=== PATIENT | male | born 1970 | race African-American/Black ===

== ENCOUNTER 2019-01-07 19:25 | Inpatient (IN) | payer SELFPAY ==
[~2019-01-07] VITALS: Ht 167.6 cm; Wt 72.6 kg
[2019-01-07] MEDS ORDERED: diphenhydrAMINE 50 MG/ML VIAL IVP ONE (20:00)
[2019-01-07] MEDS ORDERED: methylPREDNISolone SOD SUCC PF 125 MG/2 ML VIAL. IV ONE (20:00)
[2019-01-07] MEDS ORDERED: IV NORMAL SALINE 1000ML BAG 1,000 ML IV ONE (20:00)
[2019-01-07] MEDS ORDERED: FAMOTIDINE 20 MG/2 ML VIAL IVP ONE (20:00)
[2019-01-07] MEDS ORDERED: MORPHINE SULFATE 4 MG/ML VIAL. IV ONE (20:00)
[2019-01-07] MEDS ORDERED: ONDANSETRON PF 4 MG/2 ML VIAL. IV ONE (20:00)
[2019-01-07 20:13] LABS: BASO % 1 % (0-3); EOS # 0.1 x10^3/uL (0.0-0.7); EOS % 1 % (0-3); HEMOGLOBIN 13.4 g/dL (13.0-17.5); LYMPH # 1.7 x10^3/uL (1.0-4.8); LYMPH % 40 % (24-48); MEAN CORPUSCULAR HEMOGLOBIN 33 pg (25-35); MEAN CORPUSCULAR HGB CONC 35 g/dL (31-37); MEAN CORPUSCULAR VOLUME 93 fL (79-100); MONO # 0.5 x10^3/uL (0.0-1.1); MONO % 11 % (0-9); NEUT % 47 % (31-73); PLATELET COUNT 196 x10^3/uL (140-400); RED BLOOD COUNT 4.08 x10^6/uL (4.30-5.70); RED CELL DISTRIBUTION WIDTH 13.7 % (11.5-14.5); WHITE BLOOD COUNT 4.3 x10^3/uL (4.0-11.0)
[2019-01-07 20:19] LABS: CALCIUM 9.1 mg/dL (8.5-10.1); CREATININE 1.4 mg/dL (0.7-1.3); GFR 53.6; POTASSIUM 3.6 mmol/L (3.5-5.1)
[2019-01-07 20:20] LABS: PROTHROMBIN TIME PATIENT 15.9 SEC (11.7-14.0)
[2019-01-07 20:24] LABS: ALBUMIN 3.7 g/dL (3.4-5.0); ALBUMIN/GLOBULIN RATIO 0.9 (1.0-1.7); TOTAL BILIRUBIN 0.4 mg/dL (0.2-1.0); TOTAL PROTEIN 7.6 g/dL (6.4-8.2)
[2019-01-07] MEDS ORDERED: IOHEXOL 300 MG/ML 100ML VIAL. IV ONE (20:30)
--- NOTE | 2019-01-07 21:07 | RAD ---
CT SCAN OF THE ABDOMEN AND PELVIS WITH IV CONTRAST. History: Abdominal pain and diarrhea Comparison: December 24, 2018. Procedure: Contiguous axial images of the abdomen and pelvis were performed after the administration of 60 cc of Omni 300 IV contrast and without oral contrast. CT Abdomen with contrast: Findings: Liver: Unremarkable Spleen: Unremarkable Pancreas: Pancreatic duct is mildly dilated to 5 mm. This is not appreciated on the prior study. Adrenal Glands: Unremarkable Kidneys: Unremarkable There is no mass or lymphadenopathy. There is no free air. There is no free fluid. There is mild dependent changes posteriorly in the lungs. There is mild respiratory motion. The proximal small bowel is mildly dilated. Distal small bowel and colon have a more normal caliber. A transition zone is not seen. CT Pelvis with Contrast: Findings: The urinary bladder appears normal. There is no free fluid. There is no lymphadenopathy. The appendix is normal. Impression: 1. The pancreatic duct is mildly dilated. This is not seen on the prior study. Recommend correlation with amylase and lipase. A stone is not seen. 2. Mildly dilated proximal small bowel could be secondary to partial small bowel obstruction. PQRS Compliance Statement: One or more of the following individualized dose reduction techniques were utilized for this examination: 1. Automated exposure control 2. Adjustment of the mA and/or kV according to patient size 3. Use of iterative reconstruction technique Electronically signed by: Drew Howard III, MD (01/07/2019 9:05 PM) [facility]
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
--- NOTE | 2019-01-07 22:40 | NUR ---
Received patient from ER per cart. Admitting diagnosis is partial small bowel obstruction. Patient stated he started having abdominal pain on 01/06 with nausea and constipation. Patient stated he had chicken,fries and a soda at 1630 and that his pain increased after eating. Patient brought to ER by his Rosy. CT Scan confirmed diagnosis. Patient sleeping at this time. Will continue to monitor patient. Patient is NPO. at bedside.
[2019-01-07 22:46] LABS: BILIRUBIN,URINE NEGATIVE (NEG); CLARITY,URINE CLEAR; COLOR,URINE YELLOW; NITRITE,URINE NEGATIVE (NEG); PROTEIN,URINE NEGATIVE (NEG-TRACE); UROBILINOGEN,URINE 0.2 mg/dL (0.2 mg/dL)
[2019-01-07 22:59] LABS: BACTERIA,URINE 0 /HPF (0-FEW); RBC,URINE 0 /HPF (0-2); WBC,URINE OCC /HPF (0-4)
[2019-01-07 23:00] VITALS: BP 153/93
[2019-01-07 23:00] LABS: SQUAMOUS EPITHELIAL CELL,UR OCC /LPF
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
[2019-01-07] MEDS ORDERED: BISACODYL 10 MG SUPP.RECT. PR PRN (23:45)
[2019-01-07] MEDS ORDERED: ENOXAPARIN 40 MG/0.4 ML SYRINGE. SQ SCH (23:45)
[2019-01-07] MEDS: IV NORMAL SALINE 1000ML BAG 1,000 ML IV SCH (23:54)
[2019-01-08] MEDS ORDERED: SPIR100T4 PO (02:24)
[2019-01-08] MEDS ORDERED: METH-38 PO (02:31)
[2019-01-08] MEDS ORDERED: TAMS0.4C97 PO (02:31)
[2019-01-08] MEDS ORDERED: ASPI-630 PO (02:31)
[2019-01-08] MEDS ORDERED: OXYC5CAP PO (02:31)
[2019-01-08] MEDS ORDERED: RIVA10TA PO (02:31)
[2019-01-08] MEDS ORDERED: LOSA-73 PO (02:31)
[2019-01-08] MEDS ORDERED: AMLO10TA8 PO (02:31)
[2019-01-08 03:00] VITALS: BP 106/79
--- NOTE | 2019-01-08 06:50 | EKG ---
[facility] [address] [place] [address] Test Date: 2019-01-07 Test Time: 20:06:46 Pat Name: HILARY HARRIS Department: Room: 412 Gender: M [employer]: : 1970 Requested By: KAYLIE DANIELS Order Number: [id number] Reading MD: All Guy MD Measurements Intervals [place] Rate: 84 P: 40 [place]: 160 QRS: 59 QRSD: 84 T: 26 QT: 378 QTc: 450 Interpretive Statements SINUS RHYTHM NON SPECIFIC ST-T ABNORMALITY (ELEVATION) Electronically Signed On 01-16-2019 9:55:53 CDT by All Guy MD
[2019-01-08 07:00] VITALS: BP 143/85
[2019-01-08] MEDS: IV NORMAL SALINE 1000ML BAG 1,000 ML IV SCH ×2 (09:09→21:03)
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
[2019-01-08 11:00] VITALS: BP 145/93
--- NOTE | 2019-01-08 11:30 | NUR ---
SS following for discharge planning. SS reviewed pt chart. Pt is self pay pt. [facility]CF[facility] following for self pay status. Pt is from home with spouse and is currently on room air. SS will continue to follow for discharge planning.
[2019-01-08 15:00] VITALS: BP 155/92
[2019-01-08 19:00] VITALS: BP 173/106
[2019-01-08] MEDS: LABETALOL 20 MG/4 ML DISP.SYRIN. IVP PRN (19:29)
[2019-01-08] MEDS: MORPHINE SULFATE 4 MG/ML VIAL. IV PRN ×2 (19:34→23:48)
[2019-01-08] MEDS: FAMOTIDINE 20 MG/2 ML VIAL IVP SCH (21:07)
[2019-01-08 22:52] VITALS: BP 160/99
[2019-01-09] VITALS (7 sets, daily range): BP systolic 136–186; BP diastolic 79–130
--- NOTE | 2019-01-09 01:32 | CONS ---
DATE OF CONSULTATION: 01/08/2019 CHIEF COMPLAINT: Superior mesenteric artery dissection. 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 This was treated with anticoagulation with Xarelto. He states not taking the Xarelto over the past 3 weeks because he ran out of the medication. He does state that he did take it yesterday. He came into the Emergency Room because of irregular bowels with constipation and diarrhea and some abdominal pain. He reports some nausea, but no vomiting. He has had a decreased appetite with his constipation. He has been able to walk without any pain in his chest or shortness of breath. He reports no pain in his legs. REVIEW OF SYSTEMS: A 10-point review of systems was performed, which is otherwise negative besides what is mentioned in the history of present illness. PAST MEDICAL HISTORY: Includes: 1. Hypertension. 2. Recent superior mesenteric artery dissection. PAST SURGICAL HISTORY: Includes a knee surgery. FAMILY HISTORY: Includes hypertension. SOCIAL HISTORY: Smokes 1 pack of cigarettes per day, no alcohol use. PHYSICAL EXAMINATION: GENERAL: The patient is awake and alert, currently in no apparent distress. VITAL SIGNS: His blood pressure is 106/79, pulse anywhere from 66-107, he is afebrile, and he is 93% on room air. NECK: Supple with no carotid bruits. HEART: Regular rate and rhythm without murmurs. LUNGS: Clear to auscultation bilaterally. ABDOMEN: Soft, nondistended. There is no tenderness throughout his abdominal exam, no guarding, no rebound, and no peritoneal signs. EXTREMITIES: His bilateral lower extremities are warm with palpable pedal pulses. No edema and no tissue breakdown. Bilateral upper extremities are warm with palpable pulses. NEUROLOGIC: He is awake, alert, oriented x 3, moving all 4 extremities with normal strength, normal speech, no gross neurologic deficits. DIAGNOSTIC DATA: Review of CT scan with IV contrast, not an angiogram format shows a patent superior mesenteric artery. It does not clearly show a dissection. There is mild dilatation of his proximal small bowel suggestive of a partial small-bowel obstruction. His aorta is patent and there is no aneurysmal disease. IMPRESSION: 1. History of a superior mesenteric artery dissection in 09/2018. 2. Partial small-bowel obstruction. PLAN: The patient reports being at [facility] in 09/2018, found to have a superior mesenteric artery dissection. This has been treated with anticoagulation with Eliquis. He did not take it for approximately 3 weeks because he ran out of the medication prior to presentation to the hospital. CT scan of the abdomen and pelvis with IV contrast shows patency of the superior mesenteric artery; however, this is not an angiogram format. I recommend a CT angiogram of the abdomen and pelvis to further evaluate his arteries. He will need to continue his anticoagulation as this is the main treatment for the dissection. GI and Medicine are managing his partial small-bowel obstruction. MONTSERRAT RANDLE MD DR: OBINNA/renata JOB#: [id number] / [id number]
[2019-01-09] MEDS: MORPHINE SULFATE 4 MG/ML VIAL. IV PRN ×4 (03:55→23:33)
[2019-01-09] MEDS: LABETALOL 20 MG/4 ML DISP.SYRIN. IVP PRN ×3 (03:55→21:08)
--- NOTE | 2019-01-09 09:57 | PDOC ---
PROGRESS NOTES Subjective Subjective pt states he's "a little better", some dull pain in low abdomen intermittently Objective Objective Vital Signs Date Time Temp Pulse Resp B/P (MAP) Pulse Ox O2 Delivery O2 Flow Rate FiO2 01/09/19 07:00 98.2 80 18 147/109 (122) 99 Room Air 98.2 Intake and Output 01/09/19 07:00 Intake Total 700 ml Output Total 1 ml Balance 699 ml Intake Oral 0 ml Other 700 ml Output Stool Total 1 ml # Voids 3 Physical Exam Abdomen: Soft, No tenderness Heart: Regular rate Extremities: No clubbing, No cyanosis General: Alert, Oriented X3 HEENT: Atraumatic Lungs: Clear to auscultation Neuro: Normal speech Psych/Mental Status: Mental status NL Assessment Assessment Problems Medical Problems: (1) Partial small bowel obstruction Status: Acute Plan Plan of Care Reviewed CT, doubt intestinal obstruction; Vascular consult noted, defer radiographic evaluation to them (?CTA, need for premedication?); would be ok to start clears from my standpoint when Vascular testing completed Comment Review of Relevant I have reviewed the following items mehran (where applicable) has been applied. Labs Laboratory Tests Test 01/07/19 19:55 01/07/19 22:35 White Blood Count 4.3 x10^3/uL (4.0-11.0) Red Blood Count 4.08 x10^6/uL (4.30-5.70) Hemoglobin 13.4 g/dL (13.0-17.5) Hematocrit 38.0 % (39.0-53.0) Mean Corpuscular Volume 93 fL (79-100) Mean Corpuscular Hemoglobin 33 pg (25-35) Mean Corpuscular Hemoglobin Concent 35 g/dL (31-37) Red Cell Distribution Width 13.7 % (11.5-14.5) Platelet Count 196 x10^3/uL (140-400) Neutrophils (%) (Auto) 47 % (31-73) Lymphocytes (%) (Auto) 40 % (24-48) Monocytes (%) (Auto) 11 % (0-9) Eosinophils (%) (Auto) 1 % (0-3) Basophils (%) (Auto) 1 % (0-3) Neutrophils # (Auto) 2.0 x10^3/uL (1.8-7.7) Lymphocytes # (Auto) 1.7 x10^3/uL (1.0-4.8) Monocytes # (Auto) 0.5 x10^3/uL (0.0-1.1) Eosinophils # (Auto) 0.1 x10^3/uL (0.0-0.7) Basophils # (Auto) 0.0 x10^3/uL (0.0-0.2) Prothrombin Time 15.9 SEC (11.7-14.0) Prothromb Time International Ratio 1.3 (0.8-1.1) Activated Partial Thromboplast Time 39 SEC (24-38) Sodium Level 139 mmol/L (136-145) Potassium Level 3.6 mmol/L (3.5-5.1) Chloride Level 103 mmol/L (98-107) Carbon Dioxide Level 26 mmol/L (21-32) Anion Gap 10 (6-14) Blood Urea Nitrogen 17 mg/dL (8-26) Creatinine 1.4 mg/dL (0.7-1.3) Estimated GFR (Cockcroft-Gault) 53.6 BUN/Creatinine Ratio 12 (6-20) Glucose Level 157 mg/dL (70-99) Calcium Level 9.1 mg/dL (8.5-10.1) Total Bilirubin 0.4 mg/dL (0.2-1.0) Aspartate Amino Transf (AST/SGOT) 16 U/L (15-37) Alanine Aminotransferase (ALT/SGPT) 20 U/L (16-63) Alkaline Phosphatase 69 U/L (46-116) Troponin I Quantitative < 0.017 ng/mL (0.000-0.055) Total Protein 7.6 g/dL (6.4-8.2) Albumin 3.7 g/dL (3.4-5.0) Albumin/Globulin Ratio 0.9 (1.0-1.7) Lipase 160 U/L (73-393) Urine Color Yellow Urine Clarity Clear Urine pH 6.0 Urine Specific [place] 1.020 Urine Protein Negative mg/dL (NEG-TRACE) Urine Glucose (UA) Negative mg/dL (NEG) Urine Ketones (Stick) Negative mg/dL (NEG) Urine Blood Negative (NEG) Urine Nitrite Negative (NEG) Urine Bilirubin Negative (NEG) Urine Urobilinogen Dipstick 0.2 mg/dL (0.2 mg/dL) Urine Leukocyte Esterase Negative (NEG) Urine RBC 0 /HPF (0-2) Urine WBC Occ /HPF (0-4) Urine Squamous Epithelial Cells Occ /LPF Urine Bacteria 0 /HPF (0-FEW) Urine Mucus Slight /LPF Medications Current Medications Sodium Chloride 1,000 ml @ 1,000 mls/hr 1X ONCE IV Last administered on 01/07/19 19:57; Start 01/07/19 at 20:00; Stop 01/07/19 at 20:59; Status DC Morphine Sulfate (Morphine Sulfate) 4 mg 1X ONCE IV Last administered on 01/07/19at 19:58; Start 01/07/19 at 20:00; Stop 01/07/19 at 20:01; Status DC Ondansetron HCl (Zofran) 4 mg 1X ONCE IV Last administered on 01/07/19 19:57; Start 01/07/19 at 20:00; Stop 01/07/19 at 20:01; Status DC Methylprednisolone Sodium Succinate (SOLU-Medrol 125MG VIAL) 125 mg 1X ONCE IV Last administered on 01/07/19at 20:17; Start 01/07/19 at 20:00; Stop 01/07/19 at 20:03; Status DC Diphenhydramine HCl (Benadryl) 50 mg 1X ONCE IVP Last administered on 01/07/19at 20:18; Start 01/07/19 at 20:00; Stop 01/07/19 at 20:03; Status DC Famotidine (Pepcid Vial) 40 mg 1X ONCE IVP Last administered on 01/07/19at 20:00; Start 01/07/19 at 20:00; Stop 01/07/19 at 20:03; Status DC Iohexol (Omnipaque 300 Mg/ml) 60 ml 1X ONCE IV Last administered on 01/07/19at 20:54; Start 01/07/19 at 20:30; Stop 01/07/19 at 20:31; Status DC Sodium Chloride 1,000 ml @ 100 mls/hr Q10H IV Last administered on 01/08/19at 21:03; Start 01/07/19 at 22:30; Stop 01/08/19 at 22:29; Status DC Enoxaparin Sodium (Lovenox 40mg Syringe) 40 mg QHS SQ Last administered on 01/08/19at 01:51; Start 01/07/19 at 23:45; Stop 01/08/19 at 15:43; Status DC Morphine Sulfate (Morphine Sulfate) 4 mg PRN Q4HRS PRN IV SEVERE PAIN 7-10 Last administered on 01/09/19at 08:00; Start 01/07/19 at 23:45 Bisacodyl (Dulcolax Supp) 10 mg PRN DAILY PRN OR CONSTIPATION 1ST CHOICE; Start 01/07/19 at 23:45 Labetalol HCl (Normodyne Iv Push) 10 mg PRN Q2HR PRN IVP HYPERTENSION Last administered on 01/09/19at 03:55; Start 01/08/19 at 00:00 Famotidine (Pepcid Vial) 20 mg QHS IVP Last administered on 01/08/19at 21:07; Start 01/08/19 at 21:00 Enoxaparin Sodium (Lovenox Per Pharmacy Treatment Dosing) 1 each PRN DAILY PRN MC SEE COMMENTS; Start 01/08/19 at 15:30 Enoxaparin Sodium (Lovenox 80mg Syringe) 70 mg Q12HR SQ ; Start 01/08/19 at 16:00; Stop 01/08/19 at 16:05; Status DC Enoxaparin Sodium (Lovenox 80mg Syringe) 70 mg Q12HR SQ Last administered on 01/09/19at 07:58; Start 01/08/19 at 21:00 Active Scripts Active Reported Robaxin-750 (Methocarbamol) 750 Mg Tablet 1 Tab PO PRN Q6HRS PRN Flomax (Tamsulosin Hcl) 0.4 Mg Cap.er.24h 1 Cap PO HS Amlodipine Besylate 10 Mg Tablet 10 Mg PO DAILY Oxycodone Hcl 5 Mg Capsule 5 Mg PO PRN Q6HRS PRN Xarelto (Rivaroxaban) 10 Mg Tablet 1 Tab PO DAILY Losartan Potassium 50 Mg Tablet 50 Mg PO DAILY Aspirin 81 Mg Tab.chew 1 Tab PO DAILY Spironolactone 100 Mg Tablet 1 Tab PO DAILY Vitals/I & O Vital Sign - Last 24 Hours 01/08/19 01/08/19 01/08/19 01/08/19 11:00 15:00 19:00 19:25 Temp 98.3 98.6 99.3 98.3 98.6 99.3 Pulse 78 77 73 Resp 18 20 18 B/P (MAP) 145/93 (110) 155/92 (113) 173/106 (128) Pulse Ox 94 96 99 O2 Delivery Room Air Room Air Room Air Room Air 01/08/19 01/08/19 01/08/19 01/08/19 19:29 19:34 20:04 22:52 Temp 98.5 98.5 Pulse 73 82 Resp 20 20 18 B/P (MAP) 173/106 160/99 (119) Pulse Ox 99 O2 Delivery Room Air Room Air Room Air 01/08/19 01/09/19 01/09/19 01/09/19 23:48 00:18 03:00 03:55 Temp 98.9 98.9 Pulse 87 Resp 18 18 18 18 B/P (MAP) 166/79 (108) Pulse Ox 96 O2 Delivery Room Air Room Air Room Air 01/09/19 01/09/19 01/09/19 03:55 04:25 07:00 Temp 98.2 98.2 Pulse 81 80 Resp 18 18 B/P (MAP) 166/97 147/109 (122) Pulse Ox 99 O2 Delivery Room Air Room Air Intake and Output 01/08/19 01/08/19 01/09/19 15:00 23:00 07:00 Intake Total 700 ml Output Total 1 ml Balance -1 ml 700 ml EMA LOUIS MD Jan 09, 2019 09:57
[2019-01-09] MEDS ORDERED: methylPREDNISolone SOD SUCC PF 125 MG/2 ML VIAL. IV ONE (10:00)
[2019-01-09] MEDS ORDERED: FAMOTIDINE 20 MG/2 ML VIAL IVP ONE (10:00)
[2019-01-09] MEDS ORDERED: diphenhydrAMINE 50 MG/ML VIAL IVP ONE (10:00)
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
[2019-01-09] MEDS ORDERED: IOHEXOL 350 MG/ML 100 ML VIAL. IV ONE (10:30)
--- NOTE | 2019-01-09 11:32 | PDOC ---
Subjective: Subjective: Stooled yesterday. Lower abd aching comes and goes. Objective: Objective: Reviewed w/ nurse - CTA today. Research records: Had subdural hematoma. CTA A/P 09/23/18: focal dissections of the SMA just distal to its origin and at the origin of a jejunal branch. Noted unremarkable pancreas. Vital Signs: Vital Signs Date Time Temp Pulse Resp B/P (MAP) Pulse Ox O2 Delivery O2 Flow Rate FiO2 01/09/19 11:00 98.0 82 18 157/83 (107) 96 Room Air 98.0 PE: GEN: NAD LUNGS: CTAB HEART: RRR ABD: quiet, suprapubic discomfort NEURO/PSYCH: A & O 3 A/P: Lower abd pain H/o SMA dissection Abnormal CT - mildly dilated pancreatic duct (5mm), mildly dilated proximal small bowel -- Await CTA. ?try clears after CHRISSY-ERIK SOLANO Jan 09, 2019 11:32
[2019-01-09] MEDS: AMINO AC 3%/ELECTROLYTE/GLYCER 1,000 ML IV SCH (13:43)
[2019-01-09] MEDS: FAMOTIDINE 20 MG/2 ML VIAL IVP SCH (21:05)
[2019-01-10] MEDS ORDERED: oxyCODONE IR 5 MG TABLET PO PRN (01:30)
[2019-01-10] MEDS ORDERED: METHOCARBAMOL 750 MG TABLET PO PRN (01:30)
[2019-01-10 03:00] VITALS: BP 155/87
[2019-01-10] MEDS: AMINO AC 3%/ELECTROLYTE/GLYCER 1,000 ML IV SCH ×2 (04:23→11:15)
[2019-01-10] MEDS: MORPHINE SULFATE 4 MG/ML VIAL. IV PRN (04:31)
[2019-01-10 07:00] VITALS: BP 172/115
[2019-01-10 07:12] LABS: BASO % 0 % (0-3); EOS % 0 % (0-3); HEMATOCRIT 40.4 % (39.0-53.0); HEMOGLOBIN 14.3 g/dL (13.0-17.5); LYMPH # 1.7 x10^3/uL (1.0-4.8); LYMPH % 28 % (24-48); MEAN CORPUSCULAR HEMOGLOBIN 33 pg (25-35); MEAN CORPUSCULAR HGB CONC 36 g/dL (31-37); MEAN CORPUSCULAR VOLUME 93 fL (79-100); MONO # 0.5 x10^3/uL (0.0-1.1); MONO % 8 % (0-9); NEUT # 3.9 x10^3/uL (1.8-7.7); NEUT % 64 % (31-73); PLATELET COUNT 182 x10^3/uL (140-400); RED BLOOD COUNT 4.33 x10^6/uL (4.30-5.70); RED CELL DISTRIBUTION WIDTH 13.2 % (11.5-14.5); WHITE BLOOD COUNT 6.1 x10^3/uL (4.0-11.0)
[2019-01-10] MEDS ORDERED: ASPIRIN CHEWABLE 81 MG TABLET. PO SCH (08:00)
[2019-01-10 08:22] LABS: CREATININE 1.1 mg/dL (0.7-1.3); GFR 85.7; POTASSIUM 4.1 mmol/L (3.5-5.1)
[2019-01-10] MEDS ORDERED: amLODIPine BESYLATE 10 MG TABLET PO SCH (09:00)
[2019-01-10] MEDS ORDERED: LOSARTAN POTASSIUM 50 MG TABLET. PO SCH (09:00)
[2019-01-10] MEDS ORDERED: SPIRONOLACTONE 25 MG TABLET PO SCH (09:00)
[2019-01-10] MEDS ORDERED: RIVAROXABAN 10 MG TABLET. PO SCH (09:00)
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
--- NOTE | 2019-01-10 10:14 | RAD ---
CTA of the abdomen and pelvis compared to standard IV contrast abdomen and pelvis dated January 07, 2019 for history of SMA dissection. TECHNIQUE: Contiguous helical 2 mm axial images are obtained from the apex of diaphragm to the pelvic floor prior to administration of contrast as well as following ministration of contrast in the arterial phase. Sagittal and coronal MIPS images and 3-D volume rendered images of the vasculature also evaluated. Nonvascular findings: No gross abnormality is of the liver, spleen, gallbladder, bilateral adrenal glands, or right kidney are identified. Simple cyst at the upper pole the left kidney is noted. There is dilatation of the pancreatic duct to 5 mm, with no focal pancreatic parenchymal abnormality identified. No free or loculated fluid collections are seen within the abdomen or pelvis. Evaluation of the colon and small bowel is limited by lack of oral contrast, however no gross bowel dilatation or bowel wall thickening is identified. Several diverticula are present throughout the colon with no evidence of acute diverticulitis. The urinary bladder is fluid distended and grossly unremarkable. There are several small lymph nodes distributed throughout the mesentery which may be normal, or reactive. No suspicious adenopathy is identified. No suspicious osteoblastic or osteolytic bone lesions are seen. Degenerative spondylosis of the lower thoracic and lumbar spine is noted. Vascular findings: There is no significant atherosclerosis. The aorta is nonaneurysmal but somewhat tortuous. Iliofemoral arteries are widely patent with no aneurysms or stenoses. There are single bilateral renal arteries which are widely patent. The celiac artery and inferior mesenteric arteries are also widely patent and normal in appearance. The superior mesenteric artery is widely patent as well, but is notable for a proximal dissection originating roughly 1 cm from its origin and extending for approximately 5 cm. There is divided perfusion with the first proximal jejunal branch perfused through the smaller lumen, and the remainder of the SMA perfuse view the larger lumen. No areas of thrombosis, aneurysm, or malperfusion are identified. IMPRESSION: 1. Dilatation of the pancreatic duct without a discrete etiology. This could represent sequelae of prior pancreatitis, or be due to obstructive pathology such as stones or neoplasm. IPMN of the main duct is an additional consideration. Consider further evaluation with ERCP or MRCP and clinical and laboratory correlation. 2. 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 No evidence of flow limitation or malperfusion to any distribution however, and no evidence of thrombosis or aneurysm. Electronically signed by: Cortez Nielson MD (01/10/2019 10:11 AM) [facility] Compliance Statement: One or more of the following individualized dose reduction techniques were utilized for this examination: 1. Automated exposure control 2. Adjustment of the mA and/or kV according to patient size 3. Use of iterative reconstruction technique
--- NOTE | 2019-01-10 10:17 | PDOC ---
SURGICAL PROGRESS NOTE Subjective feels better stool yesterday, small + flatus tolerating liquids some mild lower abdominal discomfort Vital Signs Vital Signs Date Time Temp Pulse Resp B/P (MAP) Pulse Ox O2 Delivery O2 Flow Rate FiO2 01/10/19 08:19 74 172/115 01/10/19 07:54 Room Air 01/10/19 07:16 99 01/10/19 07:00 98.6 16 98.6 I&O Intake and Output 01/10/19 06:59 Intake Total 340 ml Balance 340 ml Intake Oral 340 ml # Voids 3 General: Alert, Oriented X3, Cooperative, No acute distress Abdomen: Soft, Other (NTTP on exam) Labs Laboratory Tests Test 01/10/19 06:20 01/10/19 06:30 White Blood Count 6.1 x10^3/uL (4.0-11.0) Red Blood Count 4.33 x10^6/uL (4.30-5.70) Hemoglobin 14.3 g/dL (13.0-17.5) Hematocrit 40.4 % (39.0-53.0) Mean Corpuscular Volume 93 fL (79-100) Mean Corpuscular Hemoglobin 33 pg (25-35) Mean Corpuscular Hemoglobin Concent 36 g/dL (31-37) Red Cell Distribution Width 13.2 % (11.5-14.5) Platelet Count 182 x10^3/uL (140-400) Neutrophils (%) (Auto) 64 % (31-73) Lymphocytes (%) (Auto) 28 % (24-48) Monocytes (%) (Auto) 8 % (0-9) Eosinophils (%) (Auto) 0 % (0-3) Basophils (%) (Auto) 0 % (0-3) Neutrophils # (Auto) 3.9 x10^3/uL (1.8-7.7) Lymphocytes # (Auto) 1.7 x10^3/uL (1.0-4.8) Monocytes # (Auto) 0.5 x10^3/uL (0.0-1.1) Eosinophils # (Auto) 0.0 x10^3/uL (0.0-0.7) Basophils # (Auto) 0.0 x10^3/uL (0.0-0.2) Sodium Level 143 mmol/L (136-145) Potassium Level 4.1 mmol/L (3.5-5.1) Chloride Level 102 mmol/L (98-107) Carbon Dioxide Level 30 mmol/L (21-32) Anion Gap 11 (6-14) Blood Urea Nitrogen 12 mg/dL (8-26) Creatinine 1.1 mg/dL (0.7-1.3) Estimated GFR (Cockcroft-Gault) 85.7 Glucose Level 103 mg/dL (70-99) Calcium Level 10.0 mg/dL (8.5-10.1) Laboratory Tests Test 01/10/19 06:20 01/10/19 06:30 White Blood Count 6.1 x10^3/uL (4.0-11.0) Red Blood Count 4.33 x10^6/uL (4.30-5.70) Hemoglobin 14.3 g/dL (13.0-17.5) Hematocrit 40.4 % (39.0-53.0) Mean Corpuscular Volume 93 fL (79-100) Mean Corpuscular Hemoglobin 33 pg (25-35) Mean Corpuscular Hemoglobin Concent 36 g/dL (31-37) Red Cell Distribution Width 13.2 % (11.5-14.5) Platelet Count 182 x10^3/uL (140-400) Neutrophils (%) (Auto) 64 % (31-73) Lymphocytes (%) (Auto) 28 % (24-48) Monocytes (%) (Auto) 8 % (0-9) Eosinophils (%) (Auto) 0 % (0-3) Basophils (%) (Auto) 0 % (0-3) Neutrophils # (Auto) 3.9 x10^3/uL (1.8-7.7) Lymphocytes # (Auto) 1.7 x10^3/uL (1.0-4.8) Monocytes # (Auto) 0.5 x10^3/uL (0.0-1.1) Eosinophils # (Auto) 0.0 x10^3/uL (0.0-0.7) Basophils # (Auto) 0.0 x10^3/uL (0.0-0.2) Sodium Level 143 mmol/L (136-145) Potassium Level 4.1 mmol/L (3.5-5.1) Chloride Level 102 mmol/L (98-107) Carbon Dioxide Level 30 mmol/L (21-32) Anion Gap 11 (6-14) Blood Urea Nitrogen 12 mg/dL (8-26) Creatinine 1.1 mg/dL (0.7-1.3) Estimated GFR (Cockcroft-Gault) 85.7 Glucose Level 103 mg/dL (70-99) Calcium Level 10.0 mg/dL (8.5-10.1) Problem List Problems Medical Problems: (1) Partial small bowel obstruction Status: Acute Assessment/Plan no surgical indications, diet has been advanced vascular FU KRISTI GARCIA APRN Jan 10, 2019 10:17
--- NOTE | 2019-01-10 10:37 | PDOC ---
Subjective: Subjective: Feels better, glad to be eating real food. Small stool yesterday. Abd pain better overall - still occasionally felt and still getting pain meds. Would like to go home. Objective: Objective: Possible DC today per nurse. Vital Signs: Vital Signs Date Time Temp Pulse Resp B/P (MAP) Pulse Ox O2 Delivery O2 Flow Rate FiO2 01/10/19 08:19 74 172/115 01/10/19 07:54 Room Air 01/10/19 07:16 99 01/10/19 07:00 98.6 16 98.6 Labs: Laboratory Tests Test 01/10/19 06:20 01/10/19 06:30 White Blood Count 6.1 x10^3/uL Red Blood Count 4.33 x10^6/uL Hemoglobin 14.3 g/dL Hematocrit 40.4 % Mean Corpuscular Volume 93 fL Mean Corpuscular Hemoglobin 33 pg Mean Corpuscular Hemoglobin Concent 36 g/dL Red Cell Distribution Width 13.2 % Platelet Count 182 x10^3/uL Neutrophils (%) (Auto) 64 % Lymphocytes (%) (Auto) 28 % Monocytes (%) (Auto) 8 % Eosinophils (%) (Auto) 0 % Basophils (%) (Auto) 0 % Neutrophils # (Auto) 3.9 x10^3/uL Lymphocytes # (Auto) 1.7 x10^3/uL Monocytes # (Auto) 0.5 x10^3/uL Eosinophils # (Auto) 0.0 x10^3/uL Basophils # (Auto) 0.0 x10^3/uL Sodium Level 143 mmol/L Potassium Level 4.1 mmol/L Chloride Level 102 mmol/L Carbon Dioxide Level 30 mmol/L Anion Gap 11 Blood Urea Nitrogen 12 mg/dL Creatinine 1.1 mg/dL Estimated GFR (Cockcroft-Gault) 85.7 Glucose Level 103 mg/dL Calcium Level 10.0 mg/dL Imaging: CTA A/P Nonvascular findings: No gross abnormality is of the liver, spleen, gallbladder, bilateral adrenal glands, or right kidney are identified. Simple cyst at the upper pole the left kidney is noted. There is dilatation of the pancreatic duct to 5 mm, with no focal pancreatic parenchymal abnormality identified. No free or loculated fluid collections are seen within the abdomen or pelvis. Evaluation of the colon and small bowel is limited by lack of oral contrast, however no gross bowel dilatation or bowel wall thickening is identified. Several diverticula are present throughout the colon with no evidence of acute diverticulitis. The urinary bladder is fluid distended and grossly unremarkable. There are several small lymph nodes distributed throughout the mesentery which may be normal, or reactive. No suspicious adenopathy is identified. No suspicious osteoblastic or osteolytic bone lesions are seen. Degenerative spondylosis of the lower thoracic and lumbar spine is noted. Vascular findings: There is no significant atherosclerosis. The aorta is nonaneurysmal but somewhat tortuous. Iliofemoral arteries are widely patent with no aneurysms or stenoses. There are single bilateral renal arteries which are widely patent. The celiac artery and inferior mesenteric arteries are also widely patent and normal in appearance. The superior mesenteric artery is widely patent as well, but is notable for a proximal dissection originating roughly 1 cm from its origin and extending for approximately 5 cm. There is divided perfusion with the first proximal jejunal branch perfused through the smaller lumen, and the remainder of the SMA perfuse view the larger lumen. No areas of thrombosis, aneurysm, or malperfusion are identified. IMPRESSION: 1. Dilatation of the pancreatic duct without a discrete etiology. This could represent sequelae of prior pancreatitis, or be due to obstructive pathology such as stones or neoplasm. IPMN of the main duct is an additional consideration. Consider further evaluation with ERCP or MRCP and clinical and laboratory correlation. 2. 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 No evidence of flow limitation or malperfusion to any distribution however, and no evidence of thrombosis oraneurysm. PE: GEN: NAD - up in chair, eating potatoes and eggs LUNGS: room air HEART: RRR ABD: soft, not particularly tender NEURO/PSYCH: A & O 3 A/P: Lower abd pain, decreased appetite - better SMA dissection, partial SBO Dilated pancreatic duct -- CTA as above - await vascular recs. Trying regular diet. Will plan for outpt MRCP re: pancreatic duct findings - CTA report from [facility] notes unremarkable pancreas. Also needs outpt screening colonoscopy. ERIK HOFFMANN Jan 10, 2019 10:37
[2019-01-10] MEDS ORDERED: POLYETHYLENE GLYCOL 3350 17 GM PACKET. PO PRN (10:45)
[2019-01-10 11:00] VITALS: BP 141/103
--- NOTE | 2019-01-10 11:18 | PDOC ---
PROGRESS NOTES Subjective Subjective Vascular progress Pt being evaluated for SMA dissection that originally occurred in September. Today he has no complaints. Has had several small BM's over past couple days. Is passing gas. Does not report abdominal pain at this time. Is getting IV nutrition. Objective Objective Vital Signs Date Time Temp Pulse Resp B/P (MAP) Pulse Ox O2 Delivery O2 Flow Rate FiO2 01/10/19 08:19 74 172/115 01/10/19 07:54 Room Air 01/10/19 07:16 99 01/10/19 07:00 98.6 16 98.6 Intake and Output 01/10/19 07:00 Intake Total 340 ml Balance 340 ml Intake Oral 340 ml # Voids 3 Physical Exam Abdomen: Soft, No tenderness General: Alert, Oriented X3, No acute distress, Other (Up ad howie in room) Lungs: Normal air movement Neuro: Normal gait, Normal speech Psych/Mental Status: Mental status NL, Mood NL Assessment Assessment Problems Medical Problems: (1) Partial small bowel obstruction Status: Acute Plan Plan of Care Seen with Dr. Loomis SMA dissection from September 2018 - Pt came in with constipation and some abdominal pain, these have since resolved. He reports he is ready to discharge and is packing his things during our visit. CTA was reviewed with Dr. Loomis - In order to properly assess this dissection, we would need to compare with previous images from [facility] to ensure no changes that may have contributed to his presenting symptoms. Will ask the RN to have [facility] cloud the images for us to view. As long as it is stable without significant changes we would not recommend doing any intervention, continue with anticoagulation. If there were changes that were significant we would likely recommend stenting, hospital of choice per patient preference. If the patient is clinically stable, he does not need to remain in the hospital while this occurs. He may discharge. He does report he would like to follow up with Dr. Gutierrez at [facility], this is fine - please get him a disc of his CTA done here for comparison at his follow up. We will await images to compare, even if the patient is clinically stable and discharges, to ensure adequate evaluation of the dissection. Continue anticoagulation. Comment Review of Relevant I have reviewed the following items mehran (where applicable) has been applied. Labs Laboratory Tests Test 01/10/19 06:20 01/10/19 06:30 White Blood Count 6.1 x10^3/uL (4.0-11.0) Red Blood Count 4.33 x10^6/uL (4.30-5.70) Hemoglobin 14.3 g/dL (13.0-17.5) Hematocrit 40.4 % (39.0-53.0) Mean Corpuscular Volume 93 fL (79-100) Mean Corpuscular Hemoglobin 33 pg (25-35) Mean Corpuscular Hemoglobin Concent 36 g/dL (31-37) Red Cell Distribution Width 13.2 % (11.5-14.5) Platelet Count 182 x10^3/uL (140-400) Neutrophils (%) (Auto) 64 % (31-73) Lymphocytes (%) (Auto) 28 % (24-48) Monocytes (%) (Auto) 8 % (0-9) Eosinophils (%) (Auto) 0 % (0-3) Basophils (%) (Auto) 0 % (0-3) Neutrophils # (Auto) 3.9 x10^3/uL (1.8-7.7) Lymphocytes # (Auto) 1.7 x10^3/uL (1.0-4.8) Monocytes # (Auto) 0.5 x10^3/uL (0.0-1.1) Eosinophils # (Auto) 0.0 x10^3/uL (0.0-0.7) Basophils # (Auto) 0.0 x10^3/uL (0.0-0.2) Sodium Level 143 mmol/L (136-145) Potassium Level 4.1 mmol/L (3.5-5.1) Chloride Level 102 mmol/L (98-107) Carbon Dioxide Level 30 mmol/L (21-32) Anion Gap 11 (6-14) Blood Urea Nitrogen 12 mg/dL (8-26) Creatinine 1.1 mg/dL (0.7-1.3) Estimated GFR (Cockcroft-Gault) 85.7 Glucose Level 103 mg/dL (70-99) Calcium Level 10.0 mg/dL (8.5-10.1) Laboratory Tests Test 01/10/19 06:20 01/10/19 06:30 White Blood Count 6.1 x10^3/uL (4.0-11.0) Red Blood Count 4.33 x10^6/uL (4.30-5.70) Hemoglobin 14.3 g/dL (13.0-17.5) Hematocrit 40.4 % (39.0-53.0) Mean Corpuscular Volume 93 fL (79-100) Mean Corpuscular Hemoglobin 33 pg (25-35) Mean Corpuscular Hemoglobin Concent 36 g/dL (31-37) Red Cell Distribution Width 13.2 % (11.5-14.5) Platelet Count 182 x10^3/uL (140-400) Neutrophils (%) (Auto) 64 % (31-73) Lymphocytes (%) (Auto) 28 % (24-48) Monocytes (%) (Auto) 8 % (0-9) Eosinophils (%) (Auto) 0 % (0-3) Basophils (%) (Auto) 0 % (0-3) Neutrophils # (Auto) 3.9 x10^3/uL (1.8-7.7) Lymphocytes # (Auto) 1.7 x10^3/uL (1.0-4.8) Monocytes # (Auto) 0.5 x10^3/uL (0.0-1.1) Eosinophils # (Auto) 0.0 x10^3/uL (0.0-0.7) Basophils # (Auto) 0.0 x10^3/uL (0.0-0.2) Sodium Level 143 mmol/L (136-145) Potassium Level 4.1 mmol/L (3.5-5.1) Chloride Level 102 mmol/L (98-107) Carbon Dioxide Level 30 mmol/L (21-32) Anion Gap 11 (6-14) Blood Urea Nitrogen 12 mg/dL (8-26) Creatinine 1.1 mg/dL (0.7-1.3) Estimated GFR (Cockcroft-Gault) 85.7 Glucose Level 103 mg/dL (70-99) Calcium Level 10.0 mg/dL (8.5-10.1) Medications Current Medications Sodium Chloride 1,000 ml @ 1,000 mls/hr 1X ONCE IV Last administered on 01/07/19at 19:57; Start 01/07/19 at 20:00; Stop 01/07/19 at 20:59; Status DC Morphine Sulfate (Morphine Sulfate) 4 mg 1X ONCE IV Last administered on 01/07/19at 19:58; Start 01/07/19 at 20:00; Stop 01/07/19 at 20:01; Status DC Ondansetron HCl (Zofran) 4 mg 1X ONCE IV Last administered on 01/07/19at 19:57; Start 01/07/19 at 20:00; Stop 01/07/19 at 20:01; Status DC Methylprednisolone Sodium Succinate (SOLU-Medrol 125MG VIAL) 125 mg 1X ONCE IV Last administered on 01/07/19at 20:17; Start 01/07/19 at 20:00; Stop 01/07/19 at 20:03; Status DC Diphenhydramine HCl (Benadryl) 50 mg 1X ONCE IVP Last administered on 01/07/19at 20:18; Start 01/07/19 at 20:00; Stop 01/07/19 at 20:03; Status DC Famotidine (Pepcid Vial) 40 mg 1X ONCE IVP Last administered on 01/07/19at 20:00; Start 01/07/19 at 20:00; Stop 01/07/19 at 20:03; Status DC Iohexol (Omnipaque 300 Mg/ml) 60 ml 1X ONCE IV Last administered on 01/07/19at 20:54; Start 01/07/19 at 20:30; Stop 01/07/19 at 20:31; Status DC Sodium Chloride 1,000 ml @ 100 mls/hr Q10H IV Last administered on 01/08/19at 21:03; Start 01/07/19 at 22:30; Stop 01/08/19 at 22:29; Status DC Enoxaparin Sodium (Lovenox 40mg Syringe) 40 mg QHS SQ Last administered on at 01:51; Start 01/07/19 at 23:45; Stop 01/08/19 at 15:43; Status DC Morphine Sulfate (Morphine Sulfate) 4 mg PRN Q4HRS PRN IV SEVERE PAIN 7-10 Last administered on 01/10/19at 04:31; Start 01/07/19 at 23:45 Bisacodyl (Dulcolax Supp) 10 mg PRN DAILY PRN SC CONSTIPATION 1ST CHOICE; Start 01/07/19 at 23:45 Labetalol HCl (Normodyne Iv Push) 10 mg PRN Q2HR PRN IVP HYPERTENSION Last administered on 01/09/19at 21:08; Start 01/08/19 at 00:00 Famotidine (Pepcid Vial) 20 mg QHS IVP Last administered on 01/09/19at 21:05; Start 01/08/19 at 21:00; Stop 01/10/19 at 10:35; Status DC Enoxaparin Sodium (Lovenox Per Pharmacy Treatment Dosing) 1 each PRN DAILY PRN MC SEE COMMENTS; Start 01/08/19 at 15:30 Enoxaparin Sodium (Lovenox 80mg Syringe) 70 mg Q12HR SQ ; Start 01/08/19 at 16:00; Stop 01/08/19 at 16:05; Status DC Enoxaparin Sodium (Lovenox 80mg Syringe) 70 mg Q12HR SQ Last administered on 01/10/19at 08:20; Start 01/08/19 at 21:00 Amino Acids/ Glycerin/ Electrolytes 1,000 ml @ 75 mls/hr [id number] IV Last administered on 01/10/19at 04:23; Start 01/09/19 at 10:00 Methylprednisolone Sodium Succinate (SOLU-Medrol 125MG VIAL) 125 mg 1X ONCE IV Last administered on 01/09/19at 10:36; Start 01/09/19 at 10:00; Stop 01/09/19 at 10:05; Status DC Famotidine (Pepcid Vial) 40 mg 1X ONCE IVP Last administered on 01/09/19at 10:37; Start 01/09/19 at 10:00; Stop 01/09/19 at 10:05; Status DC Diphenhydramine HCl (Benadryl) 50 mg 1X ONCE IVP Last administered on 01/09/19at 10:37; Start 01/09/19 at 10:00; Stop 01/09/19 at 10:05; Status DC Iohexol (Omnipaque 350 Mg/ml) 90 ml 1X ONCE IV Last administered on 01/09/19at 10:56; Start 01/09/19 at 10:30; Stop 01/09/19 at 10:31; Status DC Amlodipine Besylate (Norvasc) 10 mg DAILY PO Last administered on 01/10/19at 08:19; Start 01/10/19 at 09:00 Aspirin (Children'S Aspirin) 81 mg [id number] PO Last administered on 01/10/19at 08:19; Start 01/10/19 at 08:00 Losartan Potassium (Cozaar) 50 mg DAILY PO Last administered on 01/10/19at 08:19; Start 01/10/19 at 09:00 Methocarbamol (Robaxin) 750 mg PRN Q6HRS PRN PO muscle relaxant; Start 01/10/19 at 01:30 Rivaroxaban (Xarelto) 10 mg DAILY PO ; Start 01/10/19 at 09:00; Status Cancel Tamsulosin HCl (Flomax) 0.4 mg HS PO ; Start 01/10/19 at 21:00 Oxycodone HCl (Roxicodone) 5 mg PRN Q6HRS PRN PO PAIN; Start 01/10/19 at 01:30 Spironolactone (Aldactone) 100 mg DAILY PO Last administered on 01/10/19at 08:19; Start 01/10/19 at 09:00 Famotidine (Pepcid) 20 mg QHS PO ; Start 01/10/19 at 21:00 Polyethylene Glycol (miraLAX PACKET) 17 gm PRN DAILY PRN PO CONSTIPATION; Start 01/10/19 at 10:45 Active Scripts Active Reported Robaxin-750 (Methocarbamol) 750 Mg Tablet 1 Tab PO PRN Q6HRS PRN Flomax (Tamsulosin Hcl) 0.4 Mg Cap.er.24h 1 Cap PO HS Amlodipine Besylate 10 Mg Tablet 10 Mg PO DAILY Oxycodone Hcl 5 Mg Capsule 5 Mg PO PRN Q6HRS PRN Xarelto (Rivaroxaban) 10 Mg Tablet 1 Tab PO DAILY Losartan Potassium 50 Mg Tablet 50 Mg PO DAILY Aspirin 81 Mg Tab.chew 1 Tab PO DAILY Spironolactone 100 Mg Tablet 1 Tab PO DAILY Vitals/I & O Vital Sign - Last 24 Hours 01/09/19 01/09/19 01/09/19 01/09/19 15:00 18:30 19:00 19:05 Temp 98.3 98.9 98.3 98.9 Pulse 85 85 68 Resp 18 18 B/P (MAP) 177/118 (137) 177/118 186/130 (148) Pulse Ox 98 96 O2 Delivery Room Air Room Air Room Air 01/09/19 01/09/19 01/09/19 01/09/19 19:45 21:08 21:08 23:00 Temp 98.6 98.6 Pulse 64 64 93 Resp 18 B/P (MAP) 161/114 161/114 (130) 136/89 (105) Pulse Ox 96 O2 Delivery Room Air Room Air 01/09/19 01/10/19 01/10/19 01/10/19 23:33 03:00 03:41 04:31 Temp 98.3 98.3 Pulse 80 Resp 18 B/P (MAP) 155/87 (109) Pulse Ox 99 O2 Delivery Room Air Room Air Room Air Room Air 01/10/19 01/10/19 01/10/19 01/10/19 07:00 07:16 07:54 08:19 Temp 98.6 98.6 Pulse 74 74 Resp 16 B/P (MAP) 172/115 (134) 172/115 Pulse Ox 94 99 O2 Delivery Room Air Room Air Room Air 01/10/19 08:19 Pulse 74 B/P (MAP) 172/115 Intake and Output 01/09/19 01/09/19 01/10/19 15:00 23:00 07:00 Intake Total 340 ml Balance 340 ml LORI GONZALEZ Jan 10, 2019 11:18
--- NOTE | 2019-01-10 11:31 | NUR ---
Spoke to Marlene in radiology, she requested the CTA of abdomen and pelvis to be clouded to [facility], Marlene will notify consumer loan underwriter when image/report is available. When available nurse will need to notify vascular physician for review. Machining Engineer also requested copy of CTA abd pelvis completed here at [facility] yesterday to take with him upon discharge. Addendum: 01/10/19 at 1140 by HALEY CROWDER RN Received copy of CTA done at [facility] yesterday, copy of disc and report given to patient.
--- NOTE | 2019-01-10 14:13 | NUR ---
Discharge Note: [facility] Discharge instructions and discharge home medications reviewed with Patient and a copy given. All questions have been answered and understanding verbalized. The following instructions and handouts were given: information about small bowel obstruction, follow up appointments, etc. Discontinued lines and drains: IV line in left AC removed, catheter tip intact. Patient discharged to home with self care, patient ambulated to discharge vehicle, [facility] transport drove patient [place] vehicle at [id number], [facility] [id number].
[2019-01-10] MEDS ORDERED: TAMSULOSIN 0.4 MG CAP.ER.24H. PO SCH (21:00)
[2019-01-10] MEDS ORDERED: FAMOTIDINE 20 MG TABLET. PO SCH (21:00)
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
== END 2019-01-10 14:13 | disposition home or self-care (01) | DRG 389 ==
LOC: ER 19:25 → OBSVTOIN 21:59 → 4 NORTH 21:59
PROVIDERS: ADMIT Internal Medicine; ATTEND Internal Medicine
DX: K56.600 Partial intestinal obstruction, unspecified as to cause (principal); N17.9 Acute kidney failure, unspecified; I10 Essential (primary) hypertension; E26.9 Hyperaldosteronism, unspecified; K86.89 Other specified diseases of pancreas; F17.210 Nicotine dependence, cigarettes, uncomplicated; I71.4 Abdominal aortic aneurysm, without rupture; Z91.041 Radiographic dye allergy status; Z88.8 Allergy status to other drugs, medicaments and biological substances; Z82.49 Family history of ischemic heart disease and other diseases of the circulatory system; Z83.3 Family history of diabetes mellitus; Z80.0 Family history of malignant neoplasm of digestive organs
CPT/HCPCS: 36415; 74174; 74177; 80048; 80053; 81001; 83690; 84484; 85025; 85610; 85730; 93005; 96361; 96374; 96375; J1200; J1650; J2270; J2405; J2930; J3490; J7030; Q9967; 99285-25; G0378